=== PATIENT | female | born 1985 | race Caucasian/White ===

== ENCOUNTER 2017-05-12 10:10 | Emergency (ER) | payer OTHER ==
[2017-05-12 10:52] VITALS: BP 163/96; PULSE 86; RESP 18; TEMP 97.9
[2017-05-12] MEDS ORDERED: DIPH,PERTUS(ACELL)TETVAC-LF 0.5 ML VIAL IM ONE (11:05)
[2017-05-12] MEDS ORDERED: AMOXIC-POT CLAV 875MG STARTER 2 EACH TABLET PO STA (11:05)
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
== END 2017-05-12 11:39 | disposition home or self-care (01) ==
LOC: EC 10:10
DX: S40.022A Contusion of left upper arm, initial encounter (principal); E07.9 Disorder of thyroid, unspecified; Z23 Encounter for immunization; Z79.899 Other long term (current) drug therapy; Z88.1 Allergy status to other antibiotic agents; Y92.219 Unspecified school as the place of occurrence of the external cause; W50.3XXA Accidental bite by another person, initial encounter; Y99.0 Civilian activity done for income or pay
CPT/HCPCS: 90471; 90715; 99283